=== PATIENT | female | born 1980 | race Asian ===

== ENCOUNTER 2019-07-12 16:47 | Emergency (ER) | payer OTHER ==
[~2019-07-12] VITALS: Ht 167.6 cm; Wt 81.6 kg
[2019-07-12 17:58] LABS: PLATELET COUNT 185 K/uL (152-353)
[2019-07-12 18:03] LABS: SODIUM 142 mmol/L (136-145)
[2019-07-12 18:13] LABS: PARTIAL THROMBOPLASTIN TIME 25.8 SECONDS (24.5-33.6)
[2019-07-12 23:19] VITALS: BP 117/67; TEMP 98.1
== END 2019-07-12 23:22 | disposition home or self-care (01) ==
LOC: ED 16:47
DX: R07.89 Other chest pain (principal); D50.8 Other iron deficiency anemias; Z03.818 Encounter for observation for suspected exposure to other biological agents ruled out
CPT/HCPCS: 36415; 80053; 84484; 85027; 85610; 85730; 87635; 93005; 99284; U0002

== ENCOUNTER 2019-10-30 06:08 | Emergency (ER) | payer SELFPAY ==
[~2019-10-30] VITALS: Ht 167.6 cm; Wt 86.2 kg
[2019-10-30 06:13] VITALS: TEMP 98.8
[2019-10-30 06:28] LABS: PLATELET COUNT 233 K/uL (152-353)
[2019-10-30 06:37] LABS: POTASSIUM 3.7 mmol/L (3.6-5.2)
[2019-10-30 08:17] VITALS: BP 101/51
== END 2019-10-30 09:05 | disposition short-term general hospital (02) ==
LOC: ED 06:08
PROVIDERS: Emergency Medicine
DX: D27.1 Benign neoplasm of left ovary (principal); D27.0 Benign neoplasm of right ovary
CPT/HCPCS: 36415; 80048; 81000; 82150; 83690; 85027; 96360; 96361; 96375; 96376; 99285; J0696; J2175; J2550